=== PATIENT | female | born 2000 | race Caucasian/White ===

== ENCOUNTER 2018-05-23 16:55 | Emergency (ER) | payer MEDICAID, OTHER ==
[~2018-05-23] VITALS: Ht 162.6 cm; Wt 52.0 kg
[~2018-05-23 16:55] MED LIST: LIDO20SO16 PO
[2018-05-23 17:06] VITALS: BP 121/81
[2018-05-23] MEDS ORDERED: GUAI237S46 PO (18:15)
[2018-05-23] MEDS ORDERED: guaiFENesin/codeine phos 10ml UD oral syrup PO ONE (18:15)
[2018-05-23] MEDS ORDERED: BENZ-16 PO (18:15)
== END 2018-05-23 18:45 | disposition home or self-care (01) ==
LOC: ER 16:56
DX: J02.9 Acute pharyngitis, unspecified (principal); R05 Cough
CPT/HCPCS: 87081; 87880; 99283

== ENCOUNTER 2024-02-17 11:16 | Emergency (ER) | payer SELFPAY ==
[~2024-02-17] VITALS: Ht 162.6 cm; Wt 54.5 kg
[2024-02-17 13:03] LABS: BILIRUBIN,URINE NEGATIVE (Neg); CLARITY,URINE CLEAR (Clear); COLOR,URINE YELLOW (Yellow); GLUCOSE, URINE NEGATIVE (Neg); KETONES,URINE TRACE mg/dl (Neg); LEUKOCYTE ESTERASE ,URINE TRACE (Neg); NITRITES, URINE NEGATIVE (Neg); OCCULT BLOOD,URINE NEGATIVE (Neg); PROTEIN,URINE NEGATIVE (Neg); UROBILINOGEN,URINE 0.2 E.U/dL (0.2-1.0)
[2024-02-17 13:05] LABS: URINE HCG NEGATIVE (NEG)
[2024-02-17 13:10] LABS: UA COLLECTION TYPE CLN CATCH MIDSTREAM
[2024-02-17 13:13] LABS: BACTERIA,URINE 1+ /HPF (Neg); RBC,URINE 0-2 /HPF (0-2); RENAL CELLS, URINE FEW /HPF; SQUAMOUS EPITHELIAL CELL,UR MODERATE /LPF (FEW); TRANSITIONAL EPI CELLS,URINE FEW /HPF
[2024-02-17] MEDS ORDERED: NITR100C6 PO (13:32)
[2024-02-17 13:44] VITALS: BP 124/68; PULSE 70; RESP 16; TEMP 98.2; O2SAT 98
== END 2024-02-17 13:47 | disposition home or self-care (01) ==
LOC: ER 11:17
DX: R30.0 Dysuria (principal); R35.0 Frequency of micturition; M54.59 Other low back pain; R11.0 Nausea
CPT/HCPCS: 81001; 81025; 87088; 99283

== ENCOUNTER 2024-05-14 11:08 | Emergency (ER) | payer BC ==
[~2024-05-14] VITALS: Ht 162.6 cm; Wt 56.8 kg
[~2024-05-14 11:08] MED LIST changes: +NITR100C6 PO
[2024-05-14 14:58] VITALS: BP 135/82; PULSE 75; RESP 16; TEMP 98.9; O2SAT 100
== END 2024-05-14 15:05 | disposition home or self-care (01) ==
LOC: ER 11:08
DX: S16.1XXA Strain of muscle, fascia and tendon at neck level, initial encounter (principal); G43.909 Migraine, unspecified, not intractable, without status migrainosus; Z79.899 Other long term (current) drug therapy; X58.XXXA Exposure to other specified factors, initial encounter; Y93.89 Activity, other specified; Y92.89 Other specified places as the place of occurrence of the external cause; Y99.8 Other external cause status
CPT/HCPCS: 99281